=== PATIENT | male | born 1960 | race Caucasian/White ===

== ENCOUNTER → 2025-02-08 | Outpatient (CLI) | payer BC, SELFPAY ==
--- NOTE | 2025-02-08 09:53 | US_ITS ---
PROCEDURE: ABD LIMITED W/ ELASTOGRAPHY REASON FOR EXAM: HEPATOSPLENOMEGALY COMPARISON: None. TECHNIQUE: Procedure Code: [id number] Modality: US Procedure: ABD LIMITED W/ ELASTOGRAPHY Right upper quadrant abdominal ultrasound. [facility] ElastQ Imaging shear wave elastography for non-invasive assessment of liver tissue stiffness. [facility] EPIQ Elite. FINDINGS: LIVER: Size: Enlarged (hepatomegaly) Length: 22.9 cm Echotexture: Diffusely echogenic suggesting fatty infiltration Contour: Normal Lesions: There are 2 cysts in the right lobe of the liver. The largest cyst measures 7 cm by 1.2 cm cyst in the left lobe. Elastography: EQI Med: 7.9 kPa EQI Med Morgan: 1.62 m/s IQR/Med: 11.1 %* GALLBLADDER: Normal COMMON BILE DUCT: Normal measuring 6 mm . PANCREAS: Normal Visualized portions of the right kidney are unremarkable. No right upper quadrant ascites. Incidental note is made of a 1.3 cm 1.3 cm 1.4 cm left renal cysts. Mild splenomegaly. The spleen measures 12.9 cm 5.6 cm x 5.2 cm. US/ABD Limited w/ Elastography IMPRESSION: Moderate hepatic fibrosis. Hepatosplenomegaly. Hepatic cysts. Left renal cyst. Reference Values: SRU <1.37 m/s (5.7kPa): No to mild fibrosis 1.37 m/s - 2.2 m/s: Moderate to severe fibrosis >2.2 m/s (15kPa): Significant fibrosis / cirrhosis METAVIR Score F2 or higher: 1.34 m/s (5.7kPa) F3 or higher: 1.55 m/s (7.3kPa) F4: 1.80 m/s (10kPa) * If the IQR/Med is >30%, the variance in the measurements is a large and the a ccuracy of the measurement may be in question. Reading Location: [facility]
== END | disposition home or self-care (01) ==
LOC: US 09:49
PROVIDERS: PCP Nurse Practitioner Family; Referring Provider Nurse Practitioner Acute Care; Visit Provider Nurse Practitioner Acute Care
DX: R16.2 Hepatomegaly with splenomegaly, not elsewhere classified (principal); K76.0 Fatty (change of) liver, not elsewhere classified; F10.10 Alcohol abuse, uncomplicated; Z79.1 Long term (current) use of non-steroidal anti-inflammatories (NSAID)
CPT/HCPCS: 76705; 76981

== ENCOUNTER 2025-02-25 09:19 | Day surgery (SDC) | payer BC, SELFPAY ==
--- NOTE | 2025-02-22 20:01 | PAT.ANESEVAL ---
Pre-Assessment Diagnosis/Proposed Procedure Planned Operative Procedure(s): COLONOSCOPY, EGD Anesthesia History Anesthesia History - customer services coordinator: Anesthesia History - customer services coordinator Hx Hospitalization No 02/22/25 13:39 Any Problems With Anesthesia No 02/22/25 13:39 Cholinesterase deficiency No 02/22/25 13:39 You/Your Family Experience No 02/22/25 13:39 fever (hyperthermia) with Relationship Recent Exposure to Contagious Disease Does patient have nerve No 02/22/25 13:39 stimulator Patient instructed to have device shut off --Does patient have Pacemaker or ICD? When Was Last Pacemaker Check QUESTION #4 FULL TEXT: You/Your Family Experience fever (hyperthermia) with Anesthesia Last Oral Intake Last Oral intake: Last Oral Intake NPO since Meds taken in AM with sips of water? Meds patient instructed to take am of surgery PONV PONV - customer services coordinator: PONV - customer services coordinator Female No 02/22/25 13:39 HX of Motion Sickness No 02/22/25 13:39 HX of N/V After Surgery No 02/22/25 13:39 Non-Smoker Yes 02/22/25 13:39 Duration of Surgery greater No 02/22/25 13:39 than 60 minutes Number of Risk Factors 1 02/22/25 13:39 PONV Score Low Risk 02/22/25 13:39 Height & Weight Height & Weight: Anesthesia: Height & Weight Height 5 ft 7 in 01/24/25 13:40 Respiratory Assessment Respiratory Assessment - customer services coordinator: Respiratory Tract Infection Hx - customer services coordinator Hx Respiratory Tract Infection No 02/22/25 13:39 STOP Sleep Apnea STOP Sleep Apnea - customer services coordinator: STOP Sleep Apnea - customer services coordinator Hx Hypertension Yes: CONTROLLED ON MED 02/22/25 13:39 Hx Sleep Apnea No 02/22/25 13:39 CPAP BIPAP Do you snore loudly (louder Yes 02/22/25 13:39 than talking or can be heard Do you often feel tired/ No 02/22/25 13:39 fatigued/ sleepy during daytime? Has anyone observed you stop No 02/22/25 13:39 breathing during sleep? STOP Results Positive 02/22/25 13:39 QUESTION #5 FULL TEXT : Do you snore loudly (louder than talking or can be heard through closed doors)? 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 Specify any problems Hx of Preganancy in last 3 N/A 02/22/25 13:39 Months Nurse Filling Out Transfusion VCHRISTIN 02/22/25 13:39 & Questions: Date: 02/22/25 02/22/25 13:39 Time: 13:41 02/22/25 13:39 Patient unable to answer at this time (ie. confused, unrespo /Reproduction History /Reproductive History - customer services coordinator: /Reproductive Hx- customer services coordinator Hx Now No 02/22/25 13:39 Gestational Age (in weeks): EDC: Hx Hx Para Hx Section SAB No 02/22/25 13:39 Does the father of the baby or his family experience fever w Father of the baby Malignant Hypertension history comment [facility] Medical History (Updated 02/22/25 @ 13:39 by Neelam Min) Wears glasses Alcohol use Back pain History of diverticulitis Gastric reflux Former smoker History of echocardiogram Cardiology follow-up encounter Diverticulitis High cholesterol High blood pressure Diabetes Carpal tunnel syndrome Encounter for abdominal aortic aneurysm (AAA) screening Atypical mole Enlarged heart Abnormal findings on diagnostic imaging of other specified body structures Encounter for screening prostate specific antigen (PSA) measurement Vitamin D deficiency, unspecified Type 2 diabetes mellitus with other specified complication Hypertension associated with diabetes Home Medications ?Medication ?Instructions ?Recorded ?Last Taken ?Type amlodipine 10 mg tablet (Norvasc) 10 mg PO QDAY 12/28/24 Unknown History clotrimazole-betamethasone 1 1 applic topical BID 12/28/24 Unknown History %-0.05 % topical cream empagliflozin 10 mg tablet 10 mg PO QDAY 12/28/24 02/22/25 09:15 History fenofibrate 54 mg tablet 54 mg PO QDAY 12/28/24 Unknown History lisinopril 20 1 tab PO QDAY 12/28/24 Unknown History mg-hydrochlorothiazide 12.5 mg tablet metformin 1,000 mg tablet 1,000 mg PO QAM 12/28/24 Unknown History triamcinolone acetonide 0.025 % 1 applic topical BID 12/28/24 Unknown History topical ointment aspirin 81 mg chewable tablet 81 mg PO QDAY 01/24/25 02/18/25 History sodium,potassium,mag sulfates 17.5 See Rx Instructions PO .COMPLEX 01/24/25 Unknown Rx gram-3.13 gram-1.6 gram oral soln #354 mL (Suprep Bowel Prep Kit) atorvastatin 40 mg tablet 40 mg PO DAILY 02/22/25 Unknown History Allergy/AdvReac Type Severity Reaction Status Date / Time No Known Allergies Allergy Verified 02/22/25 13:24 Family History Mother Respiratory disease Heart disease Surgical History (Updated 02/22/25 @ 13:39 by Neelam Min) Hx of removal of cyst History of carpal tunnel release of both wrists Social History Smoking Status: Former smoker alcohol intake: current substance use type: does not use Audit: Pertinent Findings Pertinent Findings Echo (EF%) pertinent findings: November 03, 2024. EF of 60 to 65%. No aortic stenosis. Consult pertinent findings: December 21, 2024. [employer]. 1. 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 Started on aspirin 81 mg. 2. Cardiac murmur-aortic valve calcification. Echo reviewed. CT of the chest did reveal calcifications around the aortic valve which are likely the cause of the murmur. Additional pertinent findings: March 2024. CT calcium score 68.6 Recommendation Anesthesia Recommendation Anesthesia recommendation: OPTIMIZED for anesthesia
--- NOTE | 2025-02-25 09:36 | PCM.HP.STD ---
HPI - General General Date of Admission: 02/25/25 Date of Service: 02/25/25 HPI Narrative DARCY HOPE, is a 64 M who presents [ Chief Complaint: liver and spleen enlarged Referred by Deandra Garcia APRN - meloxicam 15mg QD for the past 3-4 years - former smoker LABS 10/05/2024 HGB 16.5, MCV 102.5, PLT 208, glucose 156, transaminases WNL, A1C 7.3, TSH WNL CT Cardiac Scoring 04/19/2024 diffuse fatty liver and 1.6 low-density lesion (possibly cyst) CT abdomen and pelvis on 11/27/2024 showed hepatomegaly (19.4 cm), splenomegaly (13.2 cm), persistent diffuse hypoattenuation consistent with steatosis, stable simple fluid hepatic cyst. - seen in office with today, who answers majority of questions for patient - seen in the office with his today - denies any ABD pain - denies any h/o N/V - he is borderline diabetic - EtOH: Beer 30 pack lasts about a week and Vodka (1 liter) lasts about a week also maybe a little longer - since at least 2006 - denies any family h/o liver disease - denies any tattoos - denies any h/o IVDU CT 11/27/2024 liver enlarged to 19.4cm, spleen is enlarged at 13.2cm, stable liver cyst - weight is stable Colonoscopy approx 10 years ago - denies any prior EGD - denies any family h/o colon [facility] Medical History Wears glasses Alcohol use Back pain History of diverticulitis Gastric reflux Former smoker History of echocardiogram Cardiology follow-up encounter Diverticulitis High cholesterol High blood pressure Diabetes Carpal tunnel syndrome Encounter for abdominal aortic aneurysm (AAA) screening Atypical mole Enlarged heart Abnormal findings on diagnostic imaging of other specified body structures Encounter for screening prostate specific antigen (PSA) measurement Vitamin D deficiency, unspecified Type 2 diabetes mellitus with other specified complication Hypertension associated with diabetes Home Medications ?Medication ?Instructions ?Recorded ?Last Taken ?Type amlodipine 10 mg tablet (Norvasc) 10 mg PO QDAY 12/28/24 Unknown History clotrimazole-betamethasone 1 1 applic topical BID 12/28/24 Unknown History %-0.05 % topical cream empagliflozin 10 mg tablet 10 mg PO QDAY 12/28/24 02/22/25 09:15 History fenofibrate 54 mg tablet 54 mg PO QDAY 12/28/24 Unknown History lisinopril 20 1 tab PO QDAY 12/28/24 Unknown History mg-hydrochlorothiazide 12.5 mg tablet metformin 1,000 mg tablet 1,000 mg PO QAM 12/28/24 Unknown History triamcinolone acetonide 0.025 % 1 applic topical BID 12/28/24 Unknown History topical ointment aspirin 81 mg chewable tablet 81 mg PO QDAY 01/24/25 02/18/25 History sodium,potassium,mag sulfates 17.5 See Rx Instructions PO .COMPLEX 01/24/25 Unknown Rx gram-3.13 gram-1.6 gram oral soln #354 mL (Suprep Bowel Prep Kit) atorvastatin 40 mg tablet 40 mg PO DAILY 02/22/25 Unknown History Allergy/AdvReac Type Severity Reaction Status Date / Time No Known Allergies Allergy Verified 02/22/25 13:24 Family History Mother Respiratory disease Heart disease Surgical History Hx of removal of cyst History of carpal tunnel release of both wrists Social History Smoking Status: Former smoker alcohol intake: current substance use type: does not use ROS Constitutional Constitutional: Denies fatigue, fever(s), poor appetite, weight gain or weight loss Gastrointestinal Gastrointestinal: Denies belching, bloating, change in bowel habits, change in stool character, chewing difficulty, coffee ground emesis, constipation, cramping, diarrhea, dyspepsia, dysphagia, early satiety, excessive flatus, fecal incontinence, heartburn, hematemesis, hematochezia, hemorrhoids, loose stools, melena, nausea, odynophagia, rectal bleeding, tenesmus, vomiting or weight changes Physical Exam Const alert, oriented x3, no apparent distress and healthy appearing General Appearance: cooperative GI normal to inspection, nondistended, normoactive bowel sounds, soft to palpation, non-tender and non-distended Percussion: normal to percussion Rectal Exam: deferred Assessment & Plan Assessment/Plan (1) Alcohol abuse: (2) Screening for malignant neoplasm of colon: (3) Hepatosplenomegaly: (4) Abdominal pain: PLAN: Assessment and Plan Assessment and Plan (1) Alcohol abuse: Status: Acute Plan: The patient is encouraged to severely reduce alcohol intake due to its contribution to liver enlargement and potential for progression to advanced liver disease. Support offered for cessation and potential need for addiction counseling considered. (2) Hepatosplenomegaly: Status: Acute (3) Hepatic steatosis: Status: Acute (4) Patient takes NSAID (non-steroid anti-inflammatory drug): Status: Acute Orders: Orders ABD Limited w/ Elastography Today F10.10 - Alcohol abuse, uncomplicated, K76.0 - Fatty (change of) liver, not elsewhere classified, R16.2 - Hepatomegaly with splenomegaly, not elsewhere classified, Z79.1 - care home (current) use of non-steroidal anti-inflammatories (NSAID) Medications: New sodium,potassium,mag sulfates 17.5-3.13-1.6 gram (Suprep Bowel Prep Kit) as directed for split dose bowel prep 354 mL 0RF Plan 64-year-old male with history of hepatomegaly, splenomegaly, fatty liver, type 2 diabetes mellitus, and alcohol use disorder, presenting with concerns for liver and spleen enlargement as noted on prior imaging studies. The patient?s liver dimension is significantly increased with persistent diffuse steatosis observed. Alcohol use is likely contributing to hepatic and splenic enlargement. The patient?s type 2 diabetes mellitus and hyperlipidemia contribute towards metabolic syndrome, compounding liver pathology. Given the continued consumption of alcohol, this poses further risk towards ongoing hepatic damage, although advanced liver disease indicators are currently absent as noted by normal platelet, hemoglobin, and albumin levels. The elevated MCV is also likely attributed to alcohol use. Additional assessment is necessary to evaluate the presence of any esophageal varices given risk of portal hypertension from current findings. A concurrent upper endoscopy during planned colonoscopy could assist in thoroughly evaluating gastrointestinal implications. Patient Instructions: Decrease/Discontinue use of non-steroidal medications and alcohol EGD/Colon - Suprep Follow-up in office post procedure ]
--- NOTE | 2025-02-25 09:37 | PCM.PRE.AN2 ---
ASA Classification* ASA Classification ASA Classification: 2 Assessment & Plan Anesthesia* Anesthesia Assessment Anesthesia Assessment: Discussed sedation and/or anesthesia options, risks, benefits, and alternatives with patient/parents/legal guardian/POA. Questions invited. The patient/parents/legal guardian/POA seems to understand and agrees to proceed with anesthesia plan. Reviewed the physical assessment, medical history, allergy history and patient home medications list prior to surgery/procedure/anesthetic and documented any changes. Performed airway and anesthesia risk assessments. Anesthesia Type Anesthesia Type: MAC Anesthesia Focused Assessment* Airway Assessment Mouth opens: >3 cm Mallampati Score: II Labs Anesthesia Preop lab: CBC CHEMISTRY COAG Pre-Assessment Diagnosis/Proposed Procedure Planned Operative Procedure(s): COLONOSCOPY, EGD Anesthesia History Anesthesia History - human services manager: Anesthesia History - human services manager Hx Hospitalization No 02/22/25 13:39 Any Problems With Anesthesia No 02/22/25 13:39 Cholinesterase deficiency No 02/22/25 13:39 You/Your Family Experience No 02/22/25 13:39 fever (hyperthermia) with Relationship Recent Exposure to Contagious Disease Does patient have nerve No 02/22/25 13:39 stimulator Patient instructed to have device shut off --Does patient have Pacemaker or ICD? When Was Last Pacemaker Check QUESTION #4 FULL TEXT: You/Your Family Experience fever (hyperthermia) with Anesthesia Last Oral Intake Last Oral intake: Last Oral Intake NPO since Meds taken in AM with sips of water? Meds patient instructed to take am of surgery PONV PONV - human services manager: PONV - human services manager Female No 02/22/25 13:39 HX of Motion Sickness No 02/22/25 13:39 HX of N/V After Surgery No 02/22/25 13:39 Non-Smoker Yes 02/22/25 13:39 Duration of Surgery greater No 02/22/25 13:39 than 60 minutes Number of Risk Factors 1 02/22/25 13:39 PONV Score Low Risk 02/22/25 13:39 Height & Weight Height & Weight: Anesthesia: Height & Weight Height 5 ft 7 in 01/24/25 13:40 Respiratory Assessment Respiratory Assessment - human services manager: Respiratory Tract Infection Hx - human services manager Hx Respiratory Tract Infection No 02/22/25 13:39 STOP Sleep Apnea STOP Sleep Apnea - human services manager: STOP Sleep Apnea - human services manager Hx Hypertension Yes: CONTROLLED ON MED 02/22/25 13:39 Hx Sleep Apnea No 02/22/25 13:39 CPAP BIPAP Do you snore loudly (louder Yes 02/22/25 13:39 than talking or can be heard Do you often feel tired/ No 02/22/25 13:39 fatigued/ sleepy during daytime? Has anyone observed you stop No 02/22/25 13:39 breathing during sleep? STOP Results Positive 02/22/25 13:39 QUESTION #5 FULL TEXT : Do you snore loudly (louder than talking or can be heard through closed doors)? 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 Specify any problems Hx of Preganancy in last 3 N/A 02/22/25 13:39 Months Nurse Filling Out Transfusion VCHRISTIN 02/22/25 13:39 & Questions: Date: 02/22/25 02/22/25 13:39 Time: 13:41 02/22/25 13:39 Patient unable to answer at this time (ie. confused, unrespo /Reproduction History /Reproductive History - human services manager: /Reproductive Hx- human services manager Hx Now No 02/22/25 13:39 Gestational Age (in weeks): EDC: Hx Hx Para Hx Section SAB No 02/22/25 13:39 Does the father of the baby or his family experience fever w Father of the baby Malignant Hypertension history comment Active Medications Active Medications: Current Medications Generic Name Dose Route Start Last Admin Trade Name Freq PRN Reason Stop Dose Admin Lactated Ringer's 1,000 mls @ 15 mls/hr 02/25/25 09:30 IV .Q48H [facility] PFSH Medical History Wears glasses Alcohol use Back pain History of diverticulitis Gastric reflux Former smoker History of echocardiogram Cardiology follow-up encounter Diverticulitis High cholesterol High blood pressure Diabetes Carpal tunnel syndrome Encounter for abdominal aortic aneurysm (AAA) screening Atypical mole Enlarged heart Abnormal findings on diagnostic imaging of other specified body structures Encounter for screening prostate specific antigen (PSA) measurement Vitamin D deficiency, unspecified Type 2 diabetes mellitus with other specified complication Hypertension associated with diabetes Home Medications ?Medication ?Instructions ?Recorded ?Last Taken ?Type amlodipine 10 mg tablet (Norvasc) 10 mg PO QDAY 12/28/24 Unknown History clotrimazole-betamethasone 1 1 applic topical BID 12/28/24 Unknown History %-0.05 % topical cream empagliflozin 10 mg tablet 10 mg PO QDAY 12/28/24 02/22/25 09:15 History fenofibrate 54 mg tablet 54 mg PO QDAY 12/28/24 Unknown History lisinopril 20 1 tab PO QDAY 12/28/24 Unknown History mg-hydrochlorothiazide 12.5 mg tablet metformin 1,000 mg tablet 1,000 mg PO QAM 12/28/24 Unknown History triamcinolone acetonide 0.025 % 1 applic topical BID 12/28/24 Unknown History topical ointment aspirin 81 mg chewable tablet 81 mg PO QDAY 01/24/25 02/18/25 History sodium,potassium,mag sulfates 17.5 See Rx Instructions PO .COMPLEX 01/24/25 Unknown Rx gram-3.13 gram-1.6 gram oral soln #354 mL (Suprep Bowel Prep Kit) atorvastatin 40 mg tablet 40 mg PO DAILY 02/22/25 Unknown History Allergy/AdvReac Type Severity Reaction Status Date / Time No Known Allergies Allergy Verified 02/22/25 13:24 Family History Mother Respiratory disease Heart disease Surgical History Hx of removal of cyst History of carpal tunnel release of both wrists Social History Smoking Status: Former smoker alcohol intake: current substance use type: does not use Review of Systems (Anesthesia) ROS Narrative System reviewed and no additional complaints, except as documented.
[2025-02-25 09:41] VITALS: BP 149/84; PULSE 70; RESP 16; TEMP 36.2; O2SAT 98; BMI 33.2
[2025-02-25] MEDS: Lactated Ringers 1,000 ML 15 ML IV (09:48)
--- NOTE | 2025-02-25 10:30 | EGD_PTH ---
PATIENT: DARCY HOPE LOC: [facility] U#:[id number] AGE/SX: 64/M ROOM: RE02/25/[address]: Dr. Francisco Allan DO : 1960 BED: DIS: 02/25/2025 SPEC #: [id number] RECD: 02/25/25 11:34 STATUS: VLADIMIR STEPHANY #: [id number] MIRZA: 02/25/25 10:[address]: Francisco Allan DEPT: SURGICAL PATHOLOGY RECD BY: Claudette Dukes ENTERED: 02/25/25 13:26 SP TYPE: EGD BIOPSY OT DR: Deandra Garcia, RECORDER GRAVITY PROSPECTING-C Tissues: A - Duodenum, NOS B - Gastric mucous membrane C - Esophagus, NOS D - Sigmoid colon biopsy Procedures: Special Stain Group I Surgery Specimen Level IV GMS Stain (control) HEADER OPERATION: Colonoscopy with polypectomy, EGD with biopsy PRE-OP DIAGNOSIS: Alcohol abuse, screening for malignant neoplasm of colon, hepatosplenomegaly, abdominal pain TISSUE SUBMITTED: A- Duodenum biopsy, B- Gastric body biopsy, C- Distal esophagus biopsy,D- Sigmoid polyp MICROSCOPIC DIAGNOSIS A. Small intestine, duodenum, biopsy: - Normal villous architecture with Peri gland hyperplasia. - Negative for increased intraepithelial lymphocytes. B. Stomach, body, biopsy: - Oxyntic mucosa with features of reactive gastropathy. - Negative for Helicobacter-like organisms (H&E). C. Esophagus, distal, biopsy: - Squamous mucosa with reactive changes and mild acute inflammation. - Columnar mucosa with goblet cell metaplasia - see note. - Negative for dysplasia. - PASD stain for fungal organisms is PENDING and will be reported in an addendum. Note: The diagnosis depends on the location of the biopsy and the extent of the mucosal irregularity. If the biopsy originates from the tubular esophagus and the mucosal irregularity extends at least 1 cm above the top of the gastric folds, this represents Crandall mucosa. If the biopsy originates from the gastric cardia and/or the mucosal irregularity is less than 1 cm in extent, this represents intestinal metaplasia. D. Colon, sigmoid, polyp, biopsy: - Polypoid colonic mucosa distorted with cautery artifact - see note. Note: Cautery artifact limits the assessment. Dysplasia cannot be completely ruled out. MICROSCOPIC DESCRIPTION Slides are reviewed. GROSS DESCRIPTION A. Received in fixative is one container labeled with the patient's name and designated Duodenum biopsy. The specimen consists of two irregular fragments of hernandez tissue, each measuring 0.5 cm. The specimen is totally submitted in one cassette. B. Received in fixative is one container labeled with the patient's name and designated Gastric body biopsy. The specimen consists of two irregular fragments of hernandez tissue that measure 0.2 and 0.5 cm. The specimen is totally submitted in one cassette. C. Received in fixative is one container labeled with the patient's name and designated Distal esophagus biopsy. The specimen consists of three irregular fragments of hernandez tissue that measure 0.4 to 0.5cm. The specimen is totally submitted in one cassette. D. Received in fixative is one container labeled with the patient's name and designated Sigmoid polyp. The specimen consists of a 0.6 x 0.4 x 0.3 cm pink-hernandez to red granular sessile polyp. The resection margin is inked black and the specimen is bisected. Entirely submitted in 1 cassette. ID 02/25/2025 CPT:[id number] ADDENDUM ADDENDUM ADDENDUM ADDENDUM ADDENDUM ADDENDUM ADDENDUM ADDENDUM ADDENDUM ADDENDUM ADDENDUM ADDENDUM 03/01/2025 10:41 ADDENDUM 03/01/2025 10:41 ADDENDUM 03/01/2025 10:41 ADDENDUM 03/01/2025 10:41 ADDENDUM 03/01/2025 10:41 This addendum is to report the PASD stain on part C: C. The PASD stain is negative for fungal organisms. All matched controls reacted appropriately. These tests were developed and their performance characteristics determined by [facility]. They may not have been cleared or approved by the U.S. Food and Drug Administration. The FDA has determined that such clearance or approval is not necessary. The above immunohistochemical markers and/or special?stains have been reviewed by the Pathologist.
[2025-02-25 11:20] VITALS: BP 149/84; BP 92/57; BP 93/59; PULSE 48; PULSE 49; RESP 12; TEMP 36.6; O2SAT 96
--- NOTE | 2025-02-25 11:21 | EKG12_ITS ---
Test Reason : EKG CHANGES POSTOP Blood Pressure : */* mmHG Vent. Rate : 52 BPM Atrial Rate : 52 BPM P-R Int : 182 ms QRS Dur : 98 ms QT Int : 468 ms P-R-T Axes : 49 52 16 degrees QTcB Int : 435 ms Sinus bradycardia Nonspecific T wave abnormality Abnormal ECG Confirmed by Carlos Vargas ([id number]), editor school photograph NONA JEAN-BAPTISTE ([id number]) on 03/01/2025 8:49:54 AM Referred By: Deandra Garcia Confirmed By: Carlos Vargas
--- NOTE | 2025-02-25 11:24 | OP.PROVAT_ITS ---
02/25/2025 Deandra Garcia, Tayler-c Re : Upper GI endoscopy procedure for Armando Caballero Dear Jose This procedure was performed on Tuesday, February 25, 2025. My impressions and recommendations are as follows: Impressions : - LA Grade B reflux esophagitis with no bleeding. Biopsied. - Erythematous mucosa in the gastric body and antrum. Biopsied. - Erythematous duodenopathy. Biopsied. Recommendations : - Discharge patient to home. - Resume previous diet. - Continue present medications. - Await pathology results. My findings are described in the full procedure note, which is enclosed. If I can be of further assistance, please feel free to contact me at . Sincerely, Francisco Allan, 02/25/2025 11:24:03 AM This report has been signed electronically.
--- NOTE | 2025-02-25 11:24 | OP.EGD_ITS ---
Patient Name: Armando Caballero Procedure Date: 02/25/2025 10:35 AM Date of : 1960 Age: 64 Procedure: Upper GI endoscopy Indications: Epigastric abdominal pain, Functional Dyspepsia, Heartburn, Suspected esophageal reflux, Hepatitis with suspected esophageal varices Providers: Francisco Allan DO Referring MD: Deandra Garcia Lumber Trimmer-c Medicines: Monitored Anesthesia Care Patient Profile: This is a 64 year old male. Refer to note in patient chart for documentation of history and physical. Patient has symptoms of acute abdominal distention, chronic epigastric abdominal pain, chronic dyspepsia, chronic heartburn and chronic nausea. Complications: No immediate complications. Procedure: Pre-Anesthesia Assessment: - Prior to the procedure, a History and Physical was performed, and patient medications and allergies were reviewed. The patient is competent. The risks and benefits of the procedure and the sedation options and risks were discussed with the patient. All questions were answered and informed consent was obtained. Patient identification and proposed procedure were verified by the physician in the pre-procedure area. Mental Status Examination: alert and oriented. Airway Examination: normal oropharyngeal airway and neck mobility. Respiratory Examination: clear to auscultation. Prophylactic Antibiotics: The patient does not require prophylactic antibiotics. Prior Anticoagulants: The patient has taken no anticoagulant or antiplatelet agents. ASA Grade Assessment: II - A patient with mild systemic disease. After reviewing the risks and benefits, the patient was deemed in satisfactory condition to undergo the procedure. The anesthesia plan was to use monitored anesthesia care (MAC). Immediately prior to administration of medications, the patient was re-assessed for adequacy to receive sedatives. The heart rate, respiratory rate, oxygen saturations, blood pressure, adequacy of pulmonary ventilation, and response to care were monitored throughout the procedure. The physical status of the patient was re-assessed after the procedure. After obtaining informed consent, the endoscope was passed under direct vision. Throughout the procedure, the patient's blood pressure, pulse, and oxygen saturations were monitored continuously. The Colonoscope was introduced through the mouth, and advanced to the third part of the duodenum. Small bowel enteroscopy was deemed necessary. The upper GI endoscopy was accomplished without difficulty. The patient tolerated the procedure well. Scope In: Scope Out: 10:59:51 AM Findings: LA Grade B (one or more mucosal breaks greater than 5 mm, not extending between the tops of two mucosal folds) esophagitis with no bleeding was found 35 to 39 cm from the incisors. Biopsies were taken with a cold forceps for histology. Verification of patient identification for the specimen was done. Estimated blood loss was minimal. Patchy mildly erythematous mucosa without bleeding was found in the gastric body and in the gastric antrum. Biopsies were taken with a cold forceps for histology. Biopsies were taken with a cold forceps for Helicobacter pylori testing. Verification of patient identification for the specimen was done. Estimated blood loss was minimal. Diffuse mildly erythematous mucosa without active bleeding and with no stigmata of bleeding was found in the entire duodenum. Biopsies were taken with a cold forceps for histology. Verification of patient identification for the specimen was done. Estimated blood loss was minimal. Impression: - LA Grade B reflux esophagitis with no bleeding. Biopsied. - Erythematous mucosa in the gastric body and antrum. Biopsied. - Erythematous duodenopathy. Biopsied. Recommendation: - Discharge patient to home. - Resume previous diet. - Continue present medications. - Await pathology results. Procedure Code(s): --- Professional --- 76038, Small intestinal endoscopy, enteroscopy beyond second portion of duodenum, not including ileum; with biopsy, single or multiple CPT copyright 2021 [employer]. All rights reserved. The codes documented in this report are preliminary and upon medicare coordinator review may be revised to meet current compliance requirements. Francisco Allan DO 02/25/2025 11:24:03 AM This report has been signed electronically. Number of Addenda: 0 Note Initiated On: 02/25/2025 10:35 AM
--- NOTE | 2025-02-25 11:24 | PCM.POST.ANE ---
Anesthesia: Postop Eval I Current Vital Signs Temperature: 97.8 F Pulse Rate: 51 Blood Pressure: 93/59 Respiratory Rate: 16 Pulse Ox: 95 Oxygen Delivery Method: Room Air Assessment Airway patent: Yes Spontaneous unlabored respirations: Yes Mental status: Asleep nausea: No Vomiting: No Anesthesia Complication: Yes Anesthesia Complication Comment:: inverted T waves noted on EKG, MD notified and 12 lead ordered in PACU Fluid Hydration Crystalloid volume administer (ml): 700 Total IV fluid infused: 700 Progress Note Anesthesia document: Postop Eval 1 completed: Yes
[2025-02-25 11:25] VITALS: BP 149/84; BP 85/56; PULSE 47; RESP 16; O2SAT 96
[2025-02-25 11:26] VITALS: BP 93/59; PULSE 51; RESP 16; TEMP 36.6; O2SAT 95
--- NOTE | 2025-02-25 11:28 | OP.COLON_ITS ---
Patient Name: Armando Caballero Procedure Date: 02/25/2025 11:00 AM Date of : 1960 Age: 64 Procedure: Colonoscopy Indications: Screening for colorectal malignant neoplasm Providers: Francisco Allan DO Referring MD: Sue Vincent Medicines: Monitored Anesthesia Care Patient Profile: This is a 64 year old male. Refer to note in patient chart for documentation of history and physical. Patient has symptoms of acute abdominal distention, chronic epigastric abdominal pain, chronic dyspepsia, chronic heartburn and chronic nausea. Last Colonoscopy: several years ago. Complications: No immediate complications. Procedure: Pre-Anesthesia Assessment: - Prior to the procedure, a History and Physical was performed, and patient medications and allergies were reviewed. The patient is competent. The risks and benefits of the procedure and the sedation options and risks were discussed with the patient. All questions were answered and informed consent was obtained. Patient identification and proposed procedure were verified by the physician in the pre-procedure area. Mental Status Examination: alert and oriented. Airway Examination: normal oropharyngeal airway and neck mobility. Respiratory Examination: clear to auscultation. Prophylactic Antibiotics: The patient does not require prophylactic antibiotics. Prior Anticoagulants: The patient has taken no anticoagulant or antiplatelet agents. ASA Grade Assessment: II - A patient with mild systemic disease. After reviewing the risks and benefits, the patient was deemed in satisfactory condition to undergo the procedure. The anesthesia plan was to use monitored anesthesia care (MAC). Immediately prior to administration of medications, the patient was re-assessed for adequacy to receive sedatives. The heart rate, respiratory rate, oxygen saturations, blood pressure, adequacy of pulmonary ventilation, and response to care were monitored throughout the procedure. The physical status of the patient was re-assessed after the procedure. After I obtained informed consent, the scope was passed under direct vision. Throughout the procedure, the patient's blood pressure, pulse, and oxygen saturations were monitored continuously. The Colonoscope was introduced through the anus and advanced to the cecum, identified by appendiceal orifice and ileocecal valve. The colonoscopy was performed without difficulty. The patient tolerated the procedure well. The quality of the bowel preparation was adequate. The ileocecal valve, appendiceal orifice, and rectum were photographed. Scope In: 11:02:04 AM Scope Withdrawal Time 0 hours 8 minutes 47 seconds Scope Out: 11:13:55 AM Total Procedure Duration Time 0 hours 11 minutes 51 seconds Findings: The perianal and digital rectal examinations were normal. Multiple small and large-mouthed diverticula were found in the recto-sigmoid colon, sigmoid colon, descending colon and splenic flexure. A 9 mm polyp was found in the sigmoid colon. The polyp was sessile. The polyp was removed with a hot snare. Resection and retrieval were complete. Verification of patient identification for the specimen was done. Estimated blood loss was minimal. Non-bleeding internal hemorrhoids were found during retroflexion. The hemorrhoids were Grade II (internal hemorrhoids that prolapse but reduce spontaneously). Impression: - Diverticulosis in the recto-sigmoid colon, in the sigmoid colon, in the descending colon and at the splenic flexure. - One 9 mm polyp in the sigmoid colon, removed with a hot snare. Resected and retrieved. - Non-bleeding internal hemorrhoids. Recommendation: - Repeat colonoscopy in 5 years for surveillance. - Continue present medications. Procedure Code(s): --- Professional --- 25256, Colonoscopy, flexible; with removal of tumor(s), polyp(s), or other lesion(s) by snare technique CPT copyright 2021 [employer]. All rights reserved. The codes documented in this report are preliminary and upon crane hooker review may be revised to meet current compliance requirements. Francisco Allan DO 02/25/2025 11:27:24 AM This report has been signed electronically. Number of Addenda: 0 Note Initiated On: 02/25/2025 11:00 AM
--- NOTE | 2025-02-25 11:28 | OP.PROVAT_ITS ---
02/25/2025 Deandra Garcia, Tayler-c Re : Colonoscopy procedure for Aramndo Caballero Dear Jose This procedure was performed on Tuesday, February 25, 2025. My impressions and recommendations are as follows: Impressions : - Diverticulosis in the recto-sigmoid colon, in the sigmoid colon, in the descending colon and at the splenic flexure. - One 9 mm polyp in the sigmoid colon, removed with a hot snare. Resected and retrieved. - Non-bleeding internal hemorrhoids. Recommendations : - Repeat colonoscopy in 5 years for surveillance. - Continue present medications. My findings are described in the full procedure note, which is enclosed. If I can be of further assistance, please feel free to contact me at . Sincerely, Francisco Allan, 02/25/2025 11:27:24 AM This report has been signed electronically.
[2025-02-25 11:35] VITALS: BP 112/68; BP 149/84; PULSE 57; RESP 14; TEMP 36.2; O2SAT 96
--- NOTE | 2025-02-25 11:48 | PCM.POSTANE2 ---
Anesthesia Postop Eval I Sum Postop Eval Completion status Anesthesia document: Postop Eval 1 completed: Yes Anesthesia Postop Eval I Summary Anesthesia Postop Eval I Summary: Anesthesia Postop Eval I: Assessment Summary Airway patent Yes 02/25/25 11:26 [email or web address] Spontaneous unlabored Yes 02/25/25 11:26 [email or web address] respirations Mental status Asleep 02/25/25 11:26 [email or web address] nausea No 02/25/25 11:26 [email or web address] Vomiting No 02/25/25 11:26 [email or web address] Anesthesia Postop Eval I: Fluid Summary Crystalloid volume administer 700 02/25/25 11:26 [email or web address] (ml) Colloids volume administered ( ml) Blood Product volume administered (ml) Total IV fluid infused 700 02/25/25 11:26 [email or web address] Anesthesia Postop Eval I: Summary Notes Anesthesia Complication Yes 02/25/25 11:26 [email or web address] Anesthesia Complication inverted T waves 02/25/25 11:26 [email or web address] Comment: noted on EKG, MD notified and 12 lead ordered in PACU Post-operative progress note Anesthesia: Postop Eval II Evaluation Mental status: Awake Pain Level: 0 nausea: No Vomiting: No Progress Note Post-operative progress note: Pt with no symptoms. but noted decrease T wave Lateral. given copy to F/up with primary care. Recent Echo negative per patient.
[2025-02-25 12:03] VITALS: BP 149/84
== END 2025-02-25 12:09 | disposition home or self-care (01) ==
LOC: EN 09:22 → AC 09:22
PROVIDERS: PCP Nurse Practitioner Family; Referring Provider Nurse Practitioner Family; Visit Provider Internal Medicine Gastroenterology
PROC: 0DJD8ZZ Inspection of Lower Intestinal Tract, Via Natural or Artificial Opening Endoscopic (ICD-10-PCS; CPT 45378; principal; 2025-02-25 10:25)
DX: Z12.11 Encounter for screening for malignant neoplasm of colon (principal); E11.9 Type 2 diabetes mellitus without complications; K57.30 Diverticulosis of large intestine without perforation or abscess without bleeding; R16.2 Hepatomegaly with splenomegaly, not elsewhere classified; Z79.82 Long term (current) use of aspirin; K21.00 Gastro-esophageal reflux disease with esophagitis, without bleeding; F10.10 Alcohol abuse, uncomplicated; Z87.891 Personal history of nicotine dependence; E78.00 Pure hypercholesterolemia, unspecified; K64.1 Second degree hemorrhoids; I10 Essential (primary) hypertension; Z79.899 Other long term (current) drug therapy; K63.5 Polyp of colon
CPT/HCPCS: 45385; 44361; 82962; 88305; 88312; 93005; J2405